=== PATIENT | male | born 1935 | race Hispanic/Latino ===

== ENCOUNTER 2019-02-11 11:13 | Emergency (ER) | payer OTHER ==
[2019-02-11] MEDS ORDERED: KETOROLAC TROMETHAMINE 30MG/ML ONE (11:51)
== END 2019-02-11 14:36 | disposition home or self-care (01) ==
LOC: EDH 11:13
DX: S60.221A Contusion of right hand, initial encounter (principal); S20.219A Contusion of unspecified front wall of thorax, initial encounter; E11.9 Type 2 diabetes mellitus without complications; I10 Essential (primary) hypertension; Z85.46 Personal history of malignant neoplasm of prostate; Z86.73 Personal history of transient ischemic attack (TIA), and cerebral infarction without residual deficits; W18.30XA Fall on same level, unspecified, initial encounter; Y93.89 Activity, other specified; Y92.89 Other specified places as the place of occurrence of the external cause; Y99.8 Other external cause status
CPT/HCPCS: 71101; 73110; 73130; 96372; 99284; J1885